=== PATIENT | female | born 1950 | race Two or more races ===

== ENCOUNTER → 2024-10-16 | Outpatient (CLI) | payer MEDICARE, MEDICAID, SELFPAY ==
--- NOTE | 2024-10-16 13:30 | ECHO_ITS ---
Transthoracic Echo Report Ht (in): 59 Wt (lb): 110 Exam Location: Echo Lab Status: Preadmit Attending Psychiatrist: MALCOLM Alaniz^^^^ Indications: Procedure Performed: BP: / HR: Technical Quality: Technically difficult study MEASUREMENTS (Male / Female) Normal Values 2D ECHO LV Diastolic Diameter PLAX 4.0 cm 4.2 - 5.9 / 3.9 - 5.3 cm LV Systolic Diameter PLAX 2.5 cm IVS Diastolic Thickness 0.8 cm 0.6 - 1.0 / 0.6 - 0.9 cm LVPW Diastolic Thickness 0.8 cm 0.6 - 1.0 / 0.6 - 0.9 cm LV Relative Wall Thickness 0.4 LVOT Diameter 1.7 cm Aortic Root Diameter 2.8 cm LA Systolic Diameter LX 3.5 cm 3.0 - 4.0 / 2.7 - 3.8 cm DOPPLER AV Peak Velocity 97.8 cm/s AV Peak Gradient 3.8 mmHg AV Mean Gradient 2.0 mmHg AV Velocity Time Integral 23.6 cm AI Peak Velocity 176.0 cm/s AI Peak Gradient 12.4 mmHg AI Pressure Half Time 284.0 ms LVOT Peak Velocity 72.5 cm/s LVOT Peak Gradient 2.1 mmHg LVOT Velocity Time Integral 21.8 cm AV Area Cont Eq vti 2.1 cm? AV Area Cont Eq pk 1.7 cm? MV Area PHT 3.1 cm? Mitral E Point Velocity 31.1 cm/s Mitral A Point Velocity 93.7 cm/s Mitral E to A Ratio 0.3 LV E' Lateral Velocity 5.3 cm/s Mitral E to LV E' Lateral Ratio 5.8 LV E' Septal Velocity 6.3 cm/s Mitral E to LV E' Septal Ratio 5.0 FINDINGS Left Ventricle Normal left ventricular size, wall thickness, systolic function with no obvious regional wall motion abnormalities. There is grade III diastolic dysfunction of the left ventricle (restrictive filling pattern). The left ventricular ejection fraction is normal, estimated at 55-60%. Right Ventricle The right ventricle is normal in size and systolic function. The estimated right ventricular systolic pressure, 20 mmHg. Left Atrium The left atrium is normal by two-dimensional, color flow and Doppler imaging with no structural abnormalities, no thrombus formation present. Right Atrium The right atrium is normal by two-dimensional imaging, color flow and Doppler imaging with no structural abnormalities, no thrombus formation present. Atrial Septum The interatrial septum appears normal with no evidence of a shunt. Aorta The aorta is normal by two-dimensional, color flow and Doppler interrogation. Mitral Valve Mild mitral annular calcification. Mild mitral regurgitation. Aortic Valve Trace to mild aortic valve regurgitation. Tricuspid Valve There is trace tricuspid valve regurgitation. Pulmonic Valve The pulmonic valve is not well visualized. There is no significant pulmonic valve regurgitation. Vessels The pulmonary artery appears normal. The inferior vena cava pulmonary and hepatic veins appear normal. Pericardium The pericardium is normal by two-dimensional imaging. There is no significant pericardial effusion. CONCLUSIONS indication: SOB Normal left ventricular size and function. Approximate ejection fraction is 55-60% RV appears normal witg RVSP 20 mmHg. Trace mitral and trace tricuspid regurgitation Mariya Sanchez (Electronically Signed) Final Date: 19 October 2024 17:23
== END | disposition home or self-care (01) ==
PROVIDERS: PCP Physician Assistant; Referring Provider Physician Assistant Medical; Visit Provider Physician Assistant Medical
DX: I08.1 Rheumatic disorders of both mitral and tricuspid valves (principal)
CPT/HCPCS: 93306